=== PATIENT | male | born 1995 | race Hispanic/Latino ===

== ENCOUNTER 2023-12-21 13:01 | Emergency (ER) | payer SELFPAY ==
[2023-12-21 13:32] LABS: #Basophils 0.03 10x3/uL (0.0-0.2); %Basophils 0.4 % (0.0-1.0); %Eosinophils 1.6 % (0.0-10.0); %Lymphocytes 27.8 % (21.0-51.0); %Neutrophils 63.1 % (42.0-75.0); Hematocrit 42.2 % (42.0-52.0); Hemoglobin 14.8 g/dL (14.0-18.0); Mean Corpuscular HGB CONC 35.1 g/dL (32.0-36.0); Mean Corpuscular Hemoglobin 31.6 pg (27.0-31.0); Mean Platelet Volume 10.8 fL (7.4-10.4); Platelet Count 198 10x3/uL (130-400); RBC Distribution Width 12.2 % (11.5-14.5); Red Blood Cell (RBC) Count 4.69 mill/uL (4.70-6.10)
[2023-12-21 13:55] LABS: ALT (SGPT) 19 U/L (8-55); AST (SGOT) 20 U/L (5-34); Albumin 4.3 g/dL (3.5-5.0); Alkaline Phosphatase 77 U/L (40-110); Anion Gap 13 mmol/L (10-20); BUN (Urea Nitrogen) 13 mg/dL (8.9-20.6); Bilirubin, Total 0.7 mg/dL (0.2-1.2); Calc. Creatinine Clearance 0 mL/min (70-130); Calcium 9.3 mg/dL (7.8-10.44); Carbon Dioxide 26 mmol/L (22-29); Chloride 103 mmol/L (98-107); Estimated GFR 124; Globulin 3.2 g/dL (2.4-3.5); Glucose 80 mg/dL (70-105); Protein, Total 7.5 g/dL (6.0-8.3); Sodium 138 mmol/L (136-145)
[2023-12-21] MEDS ORDERED: Morphine 4 MG/ML VIAL ONE (16:24)
[2023-12-21] MEDS ORDERED: CEFAZOLIN 2 GM VIAL ONE (16:25)
[2023-12-21] MEDS ORDERED: Sodium Chloride 0.9% 100 ML ONE (16:25)
[2023-12-21] MEDS ORDERED: Boostrix 0.5 ML (Tdap) VIAL (>/=7 yrs of age) ONE (17:56)
[2023-12-21] MEDS ORDERED: Lidocaine 1% (PF) 30 ML VIAL ONE (18:09)
== END 2023-12-21 14:43 | disposition home or self-care (01) ==
LOC: ERS 13:01
DX: S62.607B Fracture of unspecified phalanx of left little finger, initial encounter for open fracture (principal); Z89.022 Acquired absence of left finger(s); W23.1XXA Caught, crushed, jammed, or pinched between stationary objects, initial encounter; Z23 Encounter for immunization
CPT/HCPCS: 12001; 36415; 80053; 85025; 90471; 90715; 96374; 96375; J2001; J2272